=== PATIENT | female | born 1995 | race African-American/Black ===

== ENCOUNTER 2016-07-20 16:20 | Emergency (ER) | payer OTHER ==
[~2016-07-20 16:20] MED LIST: LIDO1SOL8 SWISH-SWAL; TERC0.8C VAGINAL
[2016-07-20 16:38] VITALS: BP 115/59; PULSE 105; RESP 18; TEMP 98.9; O2SAT 100
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
[2016-07-20] MEDS ORDERED: IBUPROFEN 600 MG TAB PO ONE (17:00)
[2016-09-05] MEDS ORDERED: METR500T10 PO (11:26)
[2016-09-05] MEDS ORDERED: DIFL150T PO (11:27)
[2016-09-16] MEDS ORDERED: AZIT250T3 PO (09:11)
== END 2016-07-20 17:35 | disposition home or self-care (01) ==
LOC: PHED 16:20
DX: T59.3X3A Toxic effect of lacrimogenic gas, assault, initial encounter (principal); T26.92XA Corrosion of left eye and adnexa, part unspecified, initial encounter; T26.91XA Corrosion of right eye and adnexa, part unspecified, initial encounter
CPT/HCPCS: 99283

== ENCOUNTER 2016-08-08 08:44 | Emergency (ER) | payer OTHER ==
[~2016-08-08] VITALS: Ht 162.6 cm; Wt 68.0 kg
[2016-08-08 08:46] VITALS: BP 113/70; PULSE 80; RESP 20; TEMP 97.9; O2SAT 100
--- NOTE | 2016-08-08 08:58 | PD ---
HPI Chief Complaint: Cold / Flu Symptoms Time Seen by Provider: 08:58 Travel History International Travel<30 days: No Contact w/Intl Traveler<30days: No Traveled to known affect area: No History of Present Illness HPI 21-year-old female presents to the emergency Department with complaint of sore throat and body aches 2 days. Denies fever, chills, nausea, vomiting. Denies lump in throat, unusual drooling, difficulty swallowing. Reports painful swallowing. Denies ear pain, cough, nasal congestion. Has not taken any medications or tried any treatments to alleviate her symptoms. No others with similar symptoms. Allergies to Diflucan and tomato. Dr. Stafford is primary care provider. Denies significant past medical history. No other modifying factors or associated signs and symptoms. PFSH Past Medical History Diminished Hearing: No Genitourinary: Yes Headaches: Yes Kidney Stones: Yes Immunizations Current: Yes ?: Not LMP: 07/15/16 : 3 Para: 1 Miscarriage: 1 Social History Alcohol Use: No Tobacco Use: No Substance Use: No Allergies-Medications (Allergen,Severity, Reaction): Coded Allergies: Tomato (Verified Allergy, Severe, SWELLING, 08/08/16) Diflucan (Unverified Allergy, Intermediate, Swelling, 08/08/16) Mouth swelling Reported Meds & Prescriptions Reported Meds & Active Scripts Active Magic Mouthwash Pediatric/Adult Liq (Lidocaine/Diphenhydr/Alum/Mg/Simeth) 60 Ml Susp 5 Ml SWISH-SWAL Q3HR PRN Each 5mL contains: Diphenydramine 4.5mg, Viscous Lidocaine 2% 10mg, Maalox Advanced Regular Strength 2.7ml Amoxicillin 500 Mg Cap 500 Mg PO BID 10 Days Review of Systems Except as stated in HPI: all other systems reviewed are Neg Physical Exam Narrative GENERAL: Well-nourished, well-developed patient, in no acute distress; afebrile , nontoxic-appearing SKIN: Warm and dry. No rash. HEAD: Atraumatic. Normocephalic. EYES: Pupils equal and round at 3 mm with brisk reaction. No scleral icterus. No injection or drainage. PERRLA. ENT: Mucosa pink and dry. Pharynx with 2+ tonsils; without erythema, exudate, and edema. No Uvular edema. No uvular, palatal, or tonsillar deviation. Airway patent. Voice is hoarse. EARS: Bilateral pinnae and external canals appear within normal limits. Bilateral tympanic membranes without erythema, dullness or perforation.. NECK: Trachea midline. No Anterior cervical lymphadenopathy; with tenderness on palpation. CARDIOVASCULAR: Regular rate and rhythm. No murmur appreciated. RESPIRATORY: No accessory muscle use. Clear to auscultation. Breath sounds equal bilaterally. GASTROINTESTINAL: Abdomen soft, non-tender, nondistended. Hepatic and splenic margins not palpable. Bowel sounds are active 4 quadrants. MUSCULOSKELETAL: No obvious deformities. No clubbing. No cyanosis. No edema. NEUROLOGICAL: Awake and alert. Oriented 3. No obvious cranial nerve deficits. Motor grossly within normal limits. Normal speech. Moves all extremities. PSYCHIATRIC: Appropriate mood and affect; insight and judgment normal. Data Data Last Documented VS Vital Signs Date Time Temp Pulse Resp B/P Pulse Ox O2 Delivery O2 Flow Rate FiO2 08/08/16 08:46 97.9 80 20 113/70 100 Room Air Orders Group A Rapid Strep Screen (08/08/16 08:57) Influenzae A/B Antigen (08/08/16 08:57) Acetaminophen (Tylenol) (08/08/16 09:00) MDM Medical Decision Making Medical Screen Exam Complete: Yes Emergency Medical Condition: Yes Medical Record Reviewed: Yes Differential Diagnosis Strep pharyngitis, influenza, viral illness Narrative Course 21-year-old female with complaint of sore throat and body aches for 2 days. She is afebrile and nontoxic-appearing. Oropharynx is with erythema, edema, exudate. She denies fever, chills, nausea, vomiting. Tylenol administered in the ER. Rapid strep and influenza ordered. 0935: Rapid strep and influenza negative. Throat culture pending. I will treat the patient for exudative pharyngitis. Amoxicillin, Magic mouthwash prescribed for home. Patient verbalizes understanding and agreement with treatment plan. Patient is medically cleared and stable for discharge. Discussed reasons to return to the emergency department. Instructed patient to follow up with primary care provider. Patient agrees with treatment plan. The patients vital signs are stable and the patient is stable for outpatient follow- up and treatment. Patient discharged home, stable and in no acute distress. Diagnosis Primary Impression: Exudative pharyngitis Referrals: Primary Care Physician Patient Instructions: General Instructions, Pharyngitis (ED), Safe Use of Cough and Cold Medicines (ED) Departure Forms: Tests/Procedures, Work Release Enter return to work date: Aug 10, 2016 Additional Instructions: Take Antibiotics as prescribed and complete full course of antibiotics Get plenty of sleep/rest Rest your voice Drink plenty of fluids to prevent dehydration Use warm saltwater gargles to soothe throat pain Use an air humidifier/turn off ceiling fans Use throat lozenges as needed for sore throat Use ibuprofen or acetaminophen as needed to relieve pain and fever Follow-up with your primary care provider within 2-4 days Return immediately to the emergency department with worsening of symptoms Med/Other Pt SpecificInfo: Prescription(s) given Scripts Elbmxmcgbczviaf-Snweliwix-Zsi-Alum-Simeth Liq (Magic Mouthwash Pediatric/Adult Liq)60 Ml Susp5 Ml SWISH-SWAL Q3HR PRN (SORE THROAT) #60 ML Ref 0 Each 5mL contains: Diphenydramine 4.5mg, Viscous Lidocaine 2% 10mg, Maalox Advanced Regular Strength 2.7ml Prov:Paulette Watt 08/08/16 Amoxicillin 500 Mg [id number] Mg PO BID 10 Days Ref 0 Prov:Paulette Watt 08/08/16 Disposition: 01 DISCHARGE HOME Condition: Stable Paulette Watt Aug 08, 2016 08:58
[2016-08-08] MEDS ORDERED: ACETAMINOPHEN 325 MG TAB PO ONE (09:00)
[2016-08-08] MEDS ORDERED: MAGICPED SWISH-SWAL (09:26)
[2016-08-08] MEDS ORDERED: AMOX500C PO (09:26)
[2016-09-05] MEDS ORDERED: METR500T10 PO (11:26)
[2016-09-05] MEDS ORDERED: DIFL150T PO (11:27)
[2016-09-16] MEDS ORDERED: AZIT250T3 PO (09:11)
== END 2016-08-08 10:02 | disposition home or self-care (01) ==
LOC: NEPB 08:44
DX: J02.9 Acute pharyngitis, unspecified (principal)
CPT/HCPCS: 87081; 87804; 87880; 99283

== ENCOUNTER 2016-11-04 18:52 | Emergency (ER) | payer OTHER ==
[~2016-11-04] VITALS: Ht 160 cm; Wt 67.0 kg
[~2016-11-04 18:52] MED LIST changes: +AZIT250T3 PO; +DIFL150T PO; -LIDO1SOL8 SWISH-SWAL; +METR500T10 PO; -TERC0.8C VAGINAL
[2016-11-04 18:55] VITALS: BP 111/68; PULSE 71; RESP 16; TEMP 98.5; O2SAT 98
--- NOTE | 2016-11-04 20:49 | PD ---
HPI Chief Complaint: Headache Time Seen by Provider: 20:39 Travel History International Travel<30 days: No Contact w/Intl Traveler<30days: No Traveled to known affect area: No History of Present Illness HPI This is a 21-year-old female who presents to the emergency department with a headache that started around 4 PM, gradual in onset, focused around the right side of her head associated with tearing in both eyes and some light sensitivity. She has had headaches in the past but doesn't get them frequently. She tried to take Tylenol and went to sleep and her headache is not any better and the light is really bothering her. She doesn't think she could be . She also feels cold. PFSH Past Medical History Diminished Hearing: No Genitourinary: Yes Headaches: Yes Kidney Stones: Yes Immunizations Current: Yes ?: Not LMP: 11/04/16 : 3 Para: 1 Miscarriage: 1 Social History Alcohol Use: No Tobacco Use: No Substance Use: No Allergies-Medications (Allergen,Severity, Reaction): Coded Allergies: Tomato (Verified Allergy, Severe, SWELLING, 09/09/16) Diflucan (Unverified Allergy, Intermediate, Swelling, 09/09/16) Mouth swelling Reported Meds & Prescriptions Reported Meds & Active Scripts Active Azithromycin 250 Mg Tab 1,000 Mg PO ONCE Diflucan (Fluconazole) 150 Mg Tab 150 Mg PO ONCE Metronidazole 500 Mg Tab 500 Mg PO TID Review of Systems Except as stated in HPI: all other systems reviewed are Neg Physical Exam Narrative GENERAL:Well appearing, no acute distress SKIN: Focused skin assessment warm and dry. HEAD: Atraumatic. Normocephalic. EYES: Pupils equal and round. No injection or drainage. ENT: Moist mucous membranes NECK: Trachea midline. CARDIOVASCULAR: Regular rate and rhythm. No murmur appreciated. RESPIRATORY: Clear to auscultation. Breath sounds equal bilaterally. GASTROINTESTINAL: Abdomen soft, non-tender, nondistended. MUSCULOSKELETAL: No obvious deformities. NEUROLOGICAL: Awake and alert. No obvious cranial nerve deficits. No dysarthria or aphasia. Moving all extremities. PSYCHIATRIC: Appropriate mood and affect; insight and judgment normal. Data Data Last Documented VS Vital Signs Date Time Temp Pulse Resp B/P Pulse Ox O2 Delivery O2 Flow Rate FiO2 11/04/16 18:55 98.5 71 16 111/68 98 Room Air Orders Urinalysis - C+S If Indicated (11/04/16 20:47) Ketorolac Inj (Toradol Inj) (11/04/16 21:00) Prochlorperazine Inj (Compazine Inj) (11/04/16 21:00) Diphenhydramine Inj (Benadryl Inj) (11/04/16 21:00) Sodium Chlor 0.9% 1000 Ml Inj (Ns 1000 M (11/04/16 21:00) Labs Laboratory Tests Test 11/04/16 20:45 Urine Color YELLOW Urine Turbidity HAZY Urine pH 6.5 Urine Specific Osborne 1.021 Urine Protein TRACE mg/dL Urine Glucose (UA) NEG mg/dL Urine Ketones NEG mg/dL Urine Occult Blood NEG Urine Nitrite NEG Urine Bilirubin NEG Urine Urobilinogen LESS THAN 2.0 MG/DL Urine Leukocyte Esterase NEG Urine RBC LESS THAN 1 /hpf Urine WBC 1 /hpf Urine Squamous Epithelial 2 /hpf Cells Urine Mucus MANY /lpf Microscopic Urinalysis Comment CULT NOT INDICATED MDM Medical Decision Making Medical Screen Exam Complete: Yes Emergency Medical Condition: Yes Interpretation(s) afebrile, no tachycardic, normotensive no urinary tract infection Differential Diagnosis migraine headache, tension headache, cluster headache, subarachnoid hemorrhage Narrative Course This is a 21-year-old female who presents to the emergency department with headache that's been going on for 1 day. She's had headaches in the past. It didn't go away with Tylenol and she wasn't feeling well so she came to the emergency department she has a grossly normal neurologic exam. I don't suspect a subarachnoid hemorrhage as the headache is gradual in onset and similar to headaches she's had in the past. She was given Toradol, Compazine and Reglan and IV fluids and she feels much better. Patient will be discharged home. Diagnosis Primary Impression: Headache Qualified Code: R51 - Acute nonintractable headache, unspecified headache type Additional Instructions: If you develop severe worsening headache, persistent vomiting, numbness, weakness, difficulty walking or difficulty talking return to the emergency department immediately. Sometimes in the emergency department we did not identify the cause of headaches. If you continued to have headaches it is very important that you followup with your primary care physician as you may need further testing with an MRI. Med/Other Pt SpecificInfo: Prescription(s) given Scripts Naproxen 500 Mg [id number] Mg PO BID PRN (PAIN SCALE 4 TO 10) #20 TAB Prov:Adriana Berman MD 11/04/16 Disposition: 01 DISCHARGE HOME Condition: Stable Adriana Berman MD Nov 04, 2016 20:49
[2016-11-04] MEDS ORDERED: SODIUM CHLOR 0.9% 1000 ML INJ 1,000 ML IV ONE (21:00)
[2016-11-04] MEDS ORDERED: diphenhydrAMINE HCL 50 MG/ML VIAL IV PUSH ONE (21:00)
[2016-11-04] MEDS ORDERED: PROCHLORPERAZINE INJ 10 MG/2 ML VIAL IV PUSH ONE (21:00)
[2016-11-04] MEDS ORDERED: KETOROLAC TROMETHAMINE 30 MG/ML (IVP) VIAL IV PUSH ONE (21:00)
[2016-11-04 21:15] LABS: BLOOD, URINE NEG (NEG); COMMENT (UR) CULT NOT INDICATED; CULTURE IF INDICATED CULT NOT INDICATED; GLUCOSE,URINE NEG (NEG); KETONE, URINE NEG (NEG); MUCUS URINE MANY /lpf (OCC); NITRITE,URINE NEG (NEG); PH, URINE 6.5 (5.0-8.5); SQUAMOUS EPITHELIAL CELL URINE 2 /hpf (0-5); URINE COLOR YELLOW (YELLW/STRAW)
[2016-11-04] MEDS ORDERED: NAPR500T PO (21:48)
[2016-11-04 22:00] VITALS: BP 120/76; PULSE 80; RESP 16; O2SAT 98
[2016-11-05] VITALS: BP 122/68; PULSE 82; RESP 16; O2SAT 98
[2016-11-05 02:00] VITALS: BP 120/60; PULSE 78; RESP 18; O2SAT 97
== END 2016-11-05 03:00 | disposition home or self-care (01) ==
LOC: NEPD 18:52
DX: R51 Headache (principal)
CPT/HCPCS: 81001; 96374; 96375; 99284; J0780; J1200; J1885; J7030

== ENCOUNTER 2017-05-10 16:22 | Emergency (ER) | payer OTHER ==
[~2017-05-10] VITALS: Ht 160 cm; Wt 61.0 kg
[~2017-05-10 16:22] MED LIST changes: +METR1TAB76 PO; -METR500T10 PO; +NAPR500T2 PO
[2017-05-10 16:24] VITALS: BP 149/88; PULSE 116; RESP 16; TEMP 97.9; O2SAT 98
[2017-05-10 16:25] VITALS: BP 97/50; PULSE 107; RESP 16; TEMP 98.8; O2SAT 98
[2017-05-10] MEDS ORDERED: ORPHENADRINE INJ 60 MG/2 ML AMP IM ONE (17:00)
[2017-05-10] MEDS ORDERED: KETOROLAC TROMETHAMINE 60 MG/2 ML (IM) VIAL IM ONE (17:00)
--- NOTE | 2017-05-10 17:45 | RADRPT ---
EXAM DATE/TIME: 05/10/2017 17:16 [facility] COMPARISON: No previous studies available for comparison. INDICATIONS : Moving patient at work and hurt upper back today MEDICAL HISTORY : None. SURGICAL HISTORY : None. ENCOUNTER: Initial ACUITY: 1 day PAIN SCORE: 9/10 LOCATION: Bilateral upper back TECH NOTE: denies , PAUL Coyle MR#[id number] :93 Exam date/desc:May 10, 2017SPINE THORACIC AP/LAT/SW (3VW) FINDINGS: There is normal alignment of the thoracic vertebral bodies. Vertebral body height is maintained. No evidence of fracture or subluxation. Pedicles are intact at all levels. The paravertebral reflecti ons are not thickened. CONCLUSION: Unremarkable examination of the thoracic spine. Heriberto Burns MD on May 10, 2017 at 17:43 Board Certified Radiologist. This report was verified electronically.
[2017-05-10] MEDS ORDERED: ROBA750T PO (17:55)
[2017-05-10] MEDS ORDERED: NAPR500T2 PO (17:55)
--- NOTE | 2017-05-10 17:56 | PD ---
HPI Chief Complaint: Back/ Neck Pain or Injury Time Seen by Provider: 16:29 Travel History International Travel<30 days: No Contact w/Intl Traveler<30days: No Traveled to known affect area: No History of Present Illness HPI 21-year-old female presents emergency department for evaluation of back pain started spontaneously this afternoon. 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 Patient is able to ambulate. Bilateral lower extremities neurovascularly intact. No incontinence of urine or stool. No saddle numbness. No fever or chills. Patient denies any major medical history. She states she is not . Patient doesn't take any daily medication. PFSH Past Medical History Diminished Hearing: No Genitourinary: Yes Headaches: Yes Kidney Stones: Yes Immunizations Current: Yes ?: Not LMP: 04/24/17 : 3 Para: 1 Miscarriage: 1 Social History Alcohol Use: No Tobacco Use: No Substance Use: No Allergies-Medications (Allergen,Severity, Reaction): Coded Allergies: tomato (Unverified Allergy, Severe, SWELLING, 05/10/17) fluconazole (Unverified Allergy, Intermediate, Swelling, 05/10/17) Mouth swelling Reported Meds & Prescriptions Reported Meds & Active Scripts Active Robaxin (Methocarbamol) 750 Mg Tab 750 Mg PO QID 7 Days Naproxen 500 Mg Tab 500 Mg PO BID 7 Days Review of Systems Except as stated in HPI: all other systems reviewed are Neg Physical Exam Narrative GENERAL: Well-nourished, well-developed 21-year-old female patient in no acute distress. Nontoxic-appearing. SKIN: Focused skin assessment warm/dry. HEAD: Normocephalic. Atraumatic. EYES: No scleral icterus. No injection or drainage. NECK: Supple, trachea midline. No JVD or lymphadenopathy. CARDIOVASCULAR: Regular rate and rhythm without murmurs, gallops, or rubs. RESPIRATORY: Breath sounds equal bilaterally. No accessory muscle use. GASTROINTESTINAL: Abdomen soft, non-tender, nondistended. MUSCULOSKELETAL: Range of motion of bilateral lower extremities. Bilateral lower extremities neurovascularly intact. No cyanosis, or edema. BACK: No midline spinal tenderness. Right lateral thoracic region paraspinal tenderness. No obvious deformity. No CVA tenderness. Data Data Last Documented VS Vital Signs Date Time Temp Pulse Resp B/P (MAP) Pulse Ox O2 Delivery O2 Flow Rate FiO2 05/10/17 16:25 98.8 107 16 97/50 (66) 98 Orders Orders Spine, Thoracic-Ap/Lat/Sw(3vw) (05/10/17 17:00) Ketorolac Inj (Toradol Inj) (05/10/17 17:00) Orphenadrine Inj (Norflex Inj) (05/10/17 17:00) Ed Urine Pregnancytest Poc (05/10/17 17:02) Ed Discharge Order (05/10/17 17:56) [facility] Medical Decision Making Medical Screen Exam Complete: Yes Emergency Medical Condition: Yes Differential Diagnosis Differential diagnosis includes but not limited to back strain, back sprain, fracture, musculoskeletal sprain Narrative Course Thoracic x-ray ordered and pending. IM injection of Toradol and Norflex administered. Thoracic x-ray negative for any acute findings. Patient discharged home the prescription for naproxen and Robaxin and instructions to return to the emergency Department with any worsening condition such as paresthesias, saddle numbness, incontinence of urine or stool. Patient discharged home at this time. Diagnosis Primary Impression: Thoracic back sprain Qualified Codes: S23.9XXA - Sprain of unspecified parts of thorax, initial encounter Referrals: Primary Care Physician Patient Instructions: General Instructions, Thoracic Back Strain (ED) Additional Instructions: Please return to emergency department if your symptoms return or worsen. Follow up with your primary care provider. Take medications as prescribed. Use heating pad or ice pack as needed for pain management. Med/Other Pt SpecificInfo: Prescription(s) given Scripts Methocarbamol (Robaxin) 750 Mg Tab 750 MG PO QID for Muscle Spasm for 7 Days, TAB 0 Refills Prov: Gema Navarro 05/10/17 Naproxen (Naproxen) 500 Mg Tab 500 MG PO BID for 7 Days, #14 TAB 0 Refills Prov: Gema Navarro 05/10/17 Disposition: 01 DISCHARGE HOME Condition: Stable Gema Navarro May 10, 2017 17:56
== END 2017-05-10 18:16 | disposition home or self-care (01) ==
LOC: PHEFT 16:22
DX: S23.3XXA Sprain of ligaments of thoracic spine, initial encounter (principal); X50.0XXA Overexertion from strenuous movement or load, initial encounter; Y93.F2 Activity, caregiving, lifting; Y92.129 Unspecified place in nursing home as the place of occurrence of the external cause; Y99.0 Civilian activity done for income or pay
CPT/HCPCS: 72072; 96372; 99284; J1885; J2360

== ENCOUNTER 2017-08-11 07:01 | Emergency (ER) | payer OTHER ==
[2017-08-11 07:14] VITALS: BP 107/81; PULSE 65; RESP 16; TEMP 98; O2SAT 100
--- NOTE | 2017-08-11 07:18 | PD ---
HPI Chief Complaint: Oral / Dental Pain or Problem Time Seen by Provider: 07:17 Travel History International Travel<30 days: No Contact w/Intl Traveler<30days: No Traveled to known affect area: No History of Present Illness HPI 22-year-old -[place] female presents emergency department with ongoing dental pain to the area of the #15 and 16 teeth. Patient was seen by her dentist and given amoxicillin, ibuprofen 800, and Magic mouthwash. She states she still has pain, and swelling in the area. She denies fever, chills, sore throat, or difficulty swallowing. Patient is scheduled for removal of her wisdom teeth on 21 September. Patient also has lesions to the left lower lip for the past week as well. She has no ear pain. She has no fever or chills. Pain is 8 out of 10. She is allergic to fluconazole and tomatoes. PFSH Past Medical History Diminished Hearing: No Genitourinary: Yes Headaches: Yes Kidney Stones: Yes Immunizations Current: Yes : 3 Para: 1 Miscarriage: 1 Social History Alcohol Use: No Tobacco Use: No Substance Use: No Allergies-Medications (Allergen,Severity, Reaction): Coded Allergies: tomato (Unverified Allergy, Severe, SWELLING, 05/10/17) fluconazole (Unverified Allergy, Intermediate, Swelling, 05/10/17) Mouth swelling Reported Meds & Prescriptions Reported Meds & Active Scripts Active Acyclovir 200 Mg Cap 800 Mg PO 5 TIMES A DAY 5 Days Acyclovir Topical (Acyclovir) 5% Oint 1 Applic TOPICAL Q3HR Review of Systems Except as stated in HPI: all other systems reviewed are Neg General / Constitutional: No: Fever Eyes: No: Visual changes HENT: No: Headaches Cardiovascular: No: Chest Pain or Discomfort Respiratory: No: Shortness of Breath Gastrointestinal: No: Abdominal Pain Genitourinary: No: Dysuria Musculoskeletal: No: Pain Skin: Positive Lesions (See history of present illness per), No Rash Neurologic: No: Weakness Psychiatric: No: Depression Endocrine: No: Polydipsia Hematologic/Lymphatic: No: Easy Bruising Physical Exam Narrative GENERAL: Patient appears in mild distress per SKIN: Warm and dry. Normal color. Normal turgor. Left lower lip is somewhat swollen with obvious viral lesions to the left lower lateral aspect. No other significant findings noted. HEAD: Atraumatic. Normocephalic. EYES: Pupils equal and round. No scleral icterus. No injection or drainage. ENT: No nasal bleeding or discharge. Mucous membranes pink and moist. Teeth are actually in good condition. It is noted that the #15 and 16 teeth are erupting laterally, and the patient has tenderness of the gumline consistent with wisdom teeth which are presumed impacted. There is no obvious sign of infection to the gumline or teeth. There are no significant caries noted. Pharynx is normal. There are no viral lesions to the buccal membrane. TMs are clear bilaterally. NECK: Trachea midline. Supple and nontender without significant lymphadenopathy. CARDIOVASCULAR: Regular rate and rhythm. RESPIRATORY: No accessory muscle use. Clear to auscultation. Breath sounds equal bilaterally. GASTROINTESTINAL: Abdomen soft, non-tender, nondistended. Hepatic and splenic margins not palpable. MUSCULOSKELETAL: Extremities without clubbing, cyanosis, or edema. No obvious deformities. NEUROLOGICAL: Awake and alert. No obvious cranial nerve deficits. Motor grossly within normal limits. Five out of 5 muscle strength in the arms and legs. Normal speech. PSYCHIATRIC: Appropriate mood and affect; insight and judgment normal. Data Data Last Documented VS Vital Signs Date Time Temp Pulse Resp B/P (MAP) Pulse Ox O2 Delivery O2 Flow Rate FiO2 08/11/17 07:14 98.0 65 16 107/81 (90) 100 MDM Medical Decision Making Medical Screen Exam Complete: Yes Emergency Medical Condition: Yes Differential Diagnosis [place] teeth pain. Dental pain. Herpes simplex. Narrative Course Patient should continue her current meds including amoxicillin, ibuprofen 800, and Magic mouthwash as previously prescribed. Recommend the patient take extra strength Tylenol 2 tabs with her 800 mg ibuprofen. Soft diet is recommended as well as not chewing gum. Ice pack to the tender area is recommended as well. Patient is given acyclovir topical ointment every 3 hours for the lip lesions. Patient also given acyclovir 200 mg she is to take 4 tablets 5 times a day for 5 days. Patient is to follow-up with oral surgeon or dentist as soon as possible. Work note for today is given. Diagnosis Primary Impression: Pain, dental Additional Impression: Herpes simplex Patient Instructions: General Instructions, Gingivostomatitis (ED) Departure Forms: Work Release Enter return to work date: Aug 12, 2017 Additional Instructions: Patient should continue her current meds including amoxicillin, ibuprofen 800, and Magic mouthwash as previously prescribed. Recommend the patient take extra strength Tylenol 2 tabs with her 800 mg ibuprofen. Soft diet is recommended as well as not chewing gum. Ice pack to the tender area is recommended as well. Patient is given acyclovir topical ointment every 3 hours for the lip lesions. Patient also given acyclovir 200 mg she is to take 4 tablets 5 times a day for 5 days. Patient is to follow-up with oral surgeon or dentist as soon as possible. Work note for today is given. Scripts Acyclovir (Acyclovir) 200 Mg Cap 800 MG PO 5 TIMES A DAY for Mgmt Viral Infection for 5 Days, CAP 0 Refills Prov: Justine Sutton MD 08/11/17 Acyclovir Topical (Acyclovir Topical) 5% Oint 1 APPLIC TOPICAL Q3HR for Mgmt Viral Infection, #5 GM 0 Refills Prov: Justine Sutton MD 08/11/17 Disposition: 01 DISCHARGE HOME Condition: Stable Ramsey Grimes Aug 11, 2017 07:18
[2017-08-11] MEDS ORDERED: ACYC5OIN4 TOPICAL (07:32)
[2017-08-11] MEDS ORDERED: ACYC200C66 PO (07:32)
== END 2017-08-11 07:56 | disposition home or self-care (01) ==
LOC: NEPD 07:01
DX: K08.89 Other specified disorders of teeth and supporting structures (principal); B00.9 Herpesviral infection, unspecified
CPT/HCPCS: 99283